=== PATIENT | female | born 1945 | race Caucasian/White ===

== ENCOUNTER → 2018-01-05 | Outpatient (CLI) | payer OTHER ==
[~2018-01-05] MED LIST: CEPH500 PO; CITA20 PO; DILT180 PO; LORA1 PO; LORPSEER24 PO; OLME20 PO; OMEP20ER PO; PRAV20 PO
== END | disposition home or self-care (01) ==
LOC: LAB 16:30
DX: N39.0 Urinary tract infection, site not specified (principal)
CPT/HCPCS: 87077; 87086; 87186

== ENCOUNTER → 2025-01-18 | Outpatient (CLI) | payer OTHER ==
[2025-01-18 20:00] LABS: Bacterial Vaginosis PCR Negative (NEGATIVE); Candida Group, PCR NOT DETECTED (NOT DETECT); Candida glabrata-krusei, PCR NOT DETECTED (NOT DETECT)
== END ==
LOC: LAB 16:43 → LAB SHORT 16:43
PROVIDERS: Family Medicine
DX: N89.8 Other specified noninflammatory disorders of vagina (principal)
CPT/HCPCS: 81515